=== PATIENT | female | born 1940 | race Caucasian/White ===

== ENCOUNTER 2024-02-12 11:41 | Emergency (ER) | payer MEDICARE, OTHER ==
[~2024-02-12] VITALS: Ht 160 cm; Wt 50.0 kg
[2024-02-12 12:06] VITALS: BP 128/78; TEMP 97.7
[2024-02-12] MEDS ORDERED: FLEXERIL 1010 MG/TAB PO (15:07)
[2024-02-12] MEDS ORDERED: NORCO 325 MG-51 TAB PO (15:07)
[2024-02-12] MEDS ORDERED: PREDNISONE20 MG PO (15:07)
[2024-02-12 15:26] VITALS: PULSE 110
[2024-02-16] MEDS ORDERED: PREDNISONE 5MG5 MG PO (15:56)
[2024-02-16] MEDS ORDERED: PRIL40 PO (15:57)
[2024-02-16] MEDS ORDERED: PROZAC40 MG PO (15:57)
[2024-02-16] MEDS ORDERED: TYLENOL 500MG500 MG PO (15:58)
[2024-02-16] MEDS ORDERED: PLAQUENIL 200M200 MG PO (15:58)
[2024-02-16] MEDS ORDERED: NEURONTIN800 MG/TAB PO (15:59)
[2024-02-16] MEDS ORDERED: SINEQUAN 1010 MG/CAP PO (16:00)
[2024-02-16] MEDS ORDERED: VITAMIN B12 781 TAB PO (16:06)
[2024-02-16] MEDS ORDERED: MASON NATURAL2000 IU PO (16:06)
[2024-02-16] MEDS ORDERED: OSCAL 500 TAB500 MG PO (16:07)
[2024-02-16] MEDS ORDERED: COMPLETE MULTI1 TAB PO (16:08)
[2024-02-16] MEDS ORDERED: OCUVITE1 TA1 PO (16:09)
[2024-02-21] MEDS ORDERED: ROCEPHIN 2GM VIAL21 IJ (09:24)
[2024-02-21] MEDS ORDERED: TOPROL XL 25MG25 MG PO (12:53)
== END 2024-02-12 15:26 | disposition home or self-care (01) ==
LOC: COL.ER 11:41
DX: S39.012A Strain of muscle, fascia and tendon of lower back, initial encounter (principal); X50.9XXA Other and unspecified overexertion or strenuous movements or postures, initial encounter